=== PATIENT | female | born 1955 ===

== ENCOUNTER 2017-11-22 12:52 | Emergency (ER) | payer MEDICAID ==
[2017-11-22 12:58] VITALS: RESP 18; O2SAT 98
[2017-11-22] MEDS ORDERED: Lidocaine 5% Patch TD STA (13:08)
[2017-11-22] MEDS ORDERED: Lidocaine 5% Patch TD ONE (13:13)
--- NOTE | 2017-11-22 13:16 | C.PDOC ---
History Of Present Illness 62 year old female presents to ED complaining of pain to her right shoulder. Patient [place] when a gush of water hit her shoulder hard. She also states her granddaughter was sitting on her lap during the ride and her head struck her right shoulder as well. Patient states that pain is dull, constant and had worsened since last night. She took one Advil this morning with no relief of pain. She reports she cannot raise her right arm in any way due to the pain in her right shoulder. Denies headache, fever, chills, nausea, vomiting. NKDA Time Seen by Provider: 11/22/17 13:02 Chief Complaint (Nursing): Upper Extremity Problem/Injury History Per: Patient History/Exam Limitations: no limitations Onset/Duration Of Symptoms: Days Current Symptoms Are (Timing): Still Present Quality: Dull, Other (constant, throbbing, increased with movement. ) Exacerbating Factor(s): Movement Recent travel outside of the [facility]: No Past Medical History Reviewed: Historical Data, Nursing Documentation, Vital Signs Vital Signs: Last Vital Signs Temp 98.8 F 11/22/17 12:58 Pulse 88 11/22/17 12:58 Resp 18 11/22/17 12:58 BP 156/77 H 11/22/17 12:58 Pulse Ox 98 11/22/17 13:29 Surgical History: No Surg Hx Family History: States: No Known Family Hx - Social History Hx Alcohol Use: Yes Hx Substance Use: No - Immunization History Hx Tetanus Toxoid Vaccination: No Hx Influenza Vaccination: No Hx Pneumococcal Vaccination: No Review Of Systems Constitutional: Negative for: Fever, Chills Gastrointestinal: Negative for: Nausea, Vomiting Musculoskeletal: Positive for: Shoulder Pain (right shoulder. ) Neurological: Negative for: Weakness, Numbness Physical Exam - Physical Exam Appears: Non-toxic Skin: Warm, Dry Head: Atraumatic, Normacephalic Eye(s): bilateral: Normal Inspection Oral Mucosa: Moist Neck: Normal, Supple, Other (clavical normal) Chest: Symmetrical Cardiovascular: Rhythm Regular, No Murmur Respiratory: Normal Breath Sounds, No Rales, No Rhonchi, No Wheezing Gastrointestinal/Abdominal: Soft, No Tenderness Back: Normal Inspection Extremity: Tenderness (to lateral aspect toe right shoulder.), Other (passive motion 90 degrees.) Neurological/Psych: Oriented x3, Normal Speech ED Course And Treatment O2 Sat by Pulse Oximetry: 98 (RA) Pulse Ox Interpretation: Normal Medical Decision Making Medical Decision Making: Impression: Right shoulder pain Plan: * Tylenol * Flexeril * Ibuprofen * lidocaine patch * X-ray right shoulder Disposition Counseled Patient/Family Regarding: Studies Performed, Diagnosis, Need For Followup, Rx Given - Disposition Referrals: [facility] at [facility] [Outside] Disposition: HOME/ ROUTINE Disposition Time: 13:58 Condition: STABLE Additional Instructions: Follow up with your doctor or our clinic. Prescriptions: Cyclobenzaprine [Cyclobenzaprine HCl] 10 mg PO TID PRN #12 tab PRN Reason: Pain, Moderate (4-7) Ibuprofen [Motrin] 600 mg PO TID #15 tab Instructions: Shoulder Sprain (DC) Forms: [facility] (Amharic), General Discharge Instructions - POA Present On Arrival: None - Clinical Impression Clinical Impression: Sprain, Contusion - Scribe Statement The provider has reviewed the documentation as recorded by the Caols Marino Hoang Provider Attestation: All medical record entries made by the Calos were at my direction and personally dictated by me. I have reviewed the chart and agree that the record accurately reflects my personal performance of the history, physical exam, medical decision making, and the department course for this patient. I have also personally directed, reviewed, and agree with the discharge instructions and disposition.
--- NOTE | 2017-11-22 13:43 | RAD ---
Date of service: 11/22/2017 PROCEDURE: Radiographs of the Right Shoulder HISTORY: trauma 4 days ago COMPARISON: No prior. FINDINGS: BONES: Normal. No fracture. JOINTS: Normal. Glenohumeral and acromioclavicular joints preserved. No osteoarthritis. SOFT TISSUES: Normal. OTHER FINDINGS: None. IMPRESSION: Normal radiographs of the right shoulder.
[2017-11-22 14:24] VITALS: BP 140/90; PULSE 95; TEMP 98
== END 2017-11-22 14:05 | disposition home or self-care (01) ==
LOC: C.ER 12:52
DX: S43.401A Unspecified sprain of right shoulder joint, initial encounter (principal); S40.011A Contusion of right shoulder, initial encounter; W22.8XXA Striking against or struck by other objects, initial encounter

== ENCOUNTER 2018-01-27 20:05 | Emergency (ER) | payer MEDICAID ==
[2018-01-27 20:19] VITALS: BP 159/100; PULSE 101; RESP 18; TEMP 98.9; O2SAT 99
[2018-01-27] MEDS ORDERED: Lidocaine 5% Patch TD STA (20:42)
[2018-01-27] MEDS ORDERED: Naproxen 550 mg Tab PO STA (20:42)
[2018-01-27] MEDS ORDERED: Naproxen 550 mg Tab PO ONE (20:53)
[2018-01-27] MEDS ORDERED: Lidocaine 5% Patch TD ONE (20:53)
--- NOTE | 2018-01-27 20:55 | C.PDOC ---
History Of Present Illness 62 year old female presents to the emergency department with complaints of left shoulder pain starting today. Patient states that she was recently evaluated for a similar pain in her right arm but now it is present in the left. Pain is worsened with movement. She denies trauma, falls, chest pain, SOB, or heavy lifting. Patient states that she is taking Motrin 600mg with no relief of symptoms. Time Seen by Provider: 01/27/18 20:19 Chief Complaint (Nursing): Upper Extremity Problem/Injury History Per: Patient History/Exam Limitations: no limitations Onset/Duration Of Symptoms: Days (1) Current Symptoms Are (Timing): Still Present Quality: Sharp Exacerbating Factor(s): Strenuous Use Of Affected Area, Movement Past Medical History Reviewed: Historical Data, Nursing Documentation, Vital Signs Vital Signs: Last Vital Signs Temp 98.9 F 01/27/18 20:16 Pulse 101 H 01/27/18 20:16 Resp 18 01/27/18 20:16 BP 159/100 H 01/27/18 20:16 Pulse Ox 99 01/27/18 20:16 - Medical History PMH: No Chronic Diseases Surgical History: No Surg Hx Family History: States: No Known Family Hx - Social History Hx Alcohol Use: Yes Hx Substance Use: No - Immunization History Hx Tetanus Toxoid Vaccination: No Hx Influenza Vaccination: No Hx Pneumococcal Vaccination: No Review Of Systems Except As Marked, All Systems Reviewed And Found Negative. Musculoskeletal: Positive for: Arm Pain Neurological: Negative for: Weakness, Numbness Physical Exam - Physical Exam Appears: Non-toxic, In Acute Distress Skin: Warm, Dry, No Rash Head: Atraumatic, Normacephalic Eye(s): bilateral: Normal Inspection Oral Mucosa: Moist Neck: Normal, Supple Chest: Symmetrical, No Tenderness Cardiovascular: Rhythm Regular, No Friction Rub, No Murmur Respiratory: Normal Breath Sounds, No Rales, No Rhonchi, No Wheezing Gastrointestinal/Abdominal: Soft, No Tenderness Back: Normal Inspection, No CVA Tenderness Extremity: Normal ROM (decreased range of motion due to pain at the proximal left arm and shoulder. ), Tenderness (reproducible tenderness to palpation at the proximal left arm near the shoulder. ), No Deformity, No Swelling Extremity: Bilateral: Atraumatic Neurological/Psych: Oriented x3, Normal Speech, Normal Cognition Gait: Steady ED Course And Treatment O2 Sat by Pulse Oximetry: 99 (RA) Pulse Ox Interpretation: Normal Progress Note: Plan: Naproxen 550mg PO. Lidoderm 5% TD Medical Decision Making Medical Decision Making: On re-exam, the patient reports improvement of symptoms. Lungs are CTA, heart is RRR, abdomen is soft, non-tender and tolerating PO well. Ambulatory in the ED with steady gait. Follow up with the medical doctor within 1-2 days. Return if worsened. Disposition - Disposition Referrals: [facility] at [facility] [Outside] Disposition: HOME/ ROUTINE Disposition Time: 21:15 Condition: STABLE Additional Instructions: Follow up with the medical doctor within 1-2 days. Return if worsened. 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 - Scribe Statement The provider has reviewed the documentation as recorded by the Scribe (Valeriy Hernandez) All medical record entries made by the Scribe were at my direction and personally dictated by me. I have reviewed the chart and agree that the record accurately reflects my personal performance of the history, physical exam, medical decision making, and the department course for this patient. I have also personally directed, reviewed, and agree with the discharge instructions and disposition.
== END 2018-01-27 21:24 | disposition home or self-care (01) ==
LOC: C.ER 20:05
DX: M75.92 Shoulder lesion, unspecified, left shoulder (principal)